=== PATIENT | female | born 1955 | race African-American/Black ===

== ENCOUNTER 2017-03-15 06:16 | Emergency (ER) | payer MEDICAID, OTHER ==
[~2017-03-15] VITALS: Ht 157.5 cm; Wt 105.0 kg
[~2017-03-15 06:16] MED LIST: ALBU0.08 NEB; AMLO10TA2 PO; CYAN100017 PO; HYDR12.56 PO; LORATAB PO; MONT10TA4 PO; SERT-132 PO; TIZA4TAB PO
[2017-03-15 06:18] VITALS: BP 178/77; PULSE 83; RESP 18; TEMP 98.5; O2SAT 96
[2017-03-15] MEDS ORDERED: DICL75TA PO (06:36)
[2017-03-15] MEDS ORDERED: LIDO5DIS35 TOPICAL (06:36)
--- NOTE | 2017-03-15 06:41 | PD ---
HPI Chief Complaint: Pain: Acute or Chronic Time Seen by Provider: 06:30 Travel History International Travel<30 days: No Contact w/Intl Traveler<30days: No Traveled to known affect area: No History of Present Illness HPI This is a 61-year-old female with history of chronic lower back pain with radicular symptoms who presents for evaluation of the same. She reports over the past few days she's had a flareup of her chronic lower back pain. Pain is an aching pain that radiates down the right leg to the right knee. Pain is worse with movement. She has been using her prescribed Lortab and tizanidine but symptoms persist which prompted evaluation. She denies any trauma or strenuous activity. Denies any abdominal pain, bowel or bladder incontinence, saddle anesthesia. She sees pain management doctor Migue and undergoes physical therapy but feels that this is not helping. She also has seen neurosurgeon Dr. Cleaning who recommended physical therapy, operative treatment as a last resort. MRI scan of the lumbar spine from October 2016 reveals postoperative L4 to L5 spondylolisthesis with degenerative disc disease, facet arthropathy, mild this protrusion along with facet hypertrophy at L2 to L3 and L3 to L4. No other complaints. PFSH Past Medical History Anemia: Yes Arthritis: Yes Asthma: Yes Autoimmune Disease: No Anxiety: Yes Heart Rhythm Problems: No Cancer: No Cardiovascular Problems: Yes (HTN) High Cholesterol: Yes Chest Pain: No Congestive Heart Failure: No COPD: No Diabetes: No Diminished Hearing: No Endocrine: No GERD: Yes (pt on Nexium ) Genitourinary: No Hepatitis: No Hiatal Hernia: No Hypertension: Yes Immune Disorder: Yes (RA) Musculoskeletal: Yes Neurologic: No Psychiatric: No Reproductive: No Respiratory: Yes Immunizations Current: No Sickle Cell Disease: No (Sickle cell trait ) Sleep Apnea: No Thyroid Disease: No Ulcer: No Menopausal: Yes : 4 Para: 4 Tubal Ligation: Yes Past Surgical History Abdominal Surgery: No Cardiac Surgery: No Ear Surgery: No Endocrine Surgery: No Eye Surgery: No Genitourinary Surgery: No Gynecologic Surgery: Yes (Hysterectomy ) Hysterectomy: Yes Oral Surgery: No Thoracic Surgery: No Social History Alcohol Use: No Tobacco Use: No Substance Use: No Allergies-Medications (Allergen,Severity, Reaction): Coded Allergies: Ampicillin (Verified Adverse Reaction, Intermediate, HIVES, 03/15/17) Penicillin (Verified Adverse Reaction, Intermediate, HIVES, 03/15/17) Reported Meds & Prescriptions Reported Meds & Active Scripts Active Lidoderm Patch 12 HR (Lidocaine) 5% Patch 1 Patch TOPICAL DAILY PRN Remove patch after [address] (Diclofenac Sodium) 75 Mg Tabdr 75 Mg PO BID 10 Days Amlodipine (Amlodipine Besylate) 10 Mg Tab 10 Mg PO DAILY Albuterol Neb (Albuterol Sulfate) 2.5 Mg/3 Ml Neb 2.5 Mg NEB Q4HR NEB PRN Tizanidine (Tizanidine HCl) 4 Mg Tab 4 Mg PO TID Montelukast (Montelukast Sodium) 10 Mg Tab 10 Mg PO HS Loratadine-Pseudoephedrine 24 HR 10-240 Mg Tab 1 Tab PO DAILY Sertraline (Sertraline HCl) 50 Mg Tab 50 Mg PO DAILY B-12 (Cyanocobalamin) 1,000 Mcg Cap 1,000 Mcg PO DAILY Hydrochlorothiazide 12.5 Mg Tab 12.5 Mg PO DAILY Review of Systems Except as stated in HPI: all other systems reviewed are Neg Physical Exam Narrative GENERAL: Well-developed well-nourished female in no acute distress SKIN: Warm and dry. HEAD: Atraumatic. Normocephalic. EYES: Pupils equal and round. No scleral icterus. No injection or drainage. ENT: No nasal bleeding or discharge. Mucous membranes pink and moist. NECK: Trachea midline. No JVD. CARDIOVASCULAR: Regular rate and rhythm. No murmur appreciated. RESPIRATORY: No accessory muscle use. Clear to auscultation. Breath sounds equal bilaterally. GASTROINTESTINAL: Abdomen soft, non-tender, nondistended. Hepatic and splenic margins not palpable. MUSCULOSKELETAL: No obvious deformities. No lower extremity edema. No CVA tenderness. No reproducible tenderness to palpation along the thoracic or lumbar midline spine. 5 out of 5 muscle strength lower extremities. She has pain with flexion and extension at the torso. NEUROLOGICAL: Awake and alert. No obvious cranial nerve deficits. Motor grossly within normal limits. Normal speech. Data Data Last Documented VS Vital Signs Date Time Temp Pulse Resp B/P Pulse Ox O2 Delivery O2 Flow Rate FiO2 03/15/17 06:18 98.5 83 18 178/77 96 Room Air Orders Ketorolac Inj (Toradol Inj) (03/15/17 06:45) Orphenadrine Inj (Norflex Inj) (03/15/17 06:45) Oxycodone-Acetamin 5-325 Mg (Percocet (03/15/17 06:45) Ondansetron Odt (Zofran Odt) (03/15/17 06:45) [facility] Medical Decision Making Medical Screen Exam Complete: Yes Emergency Medical Condition: Yes Medical Record Reviewed: Yes Differential Diagnosis Herniated nucleus pulposis, piriformis syndrome, degenerative disc disease, compression fracture, malignancy, cauda equina syndrome Narrative Course This is a 61-year-old female with known chronic lower back pain with radicular symptoms or presents with an exacerbation of her chronic back pain. She has no "red flag" symptoms. The plan would be to treat the patient's pain with Toradol , Norflex and Percocet here in the ED. She'll be discharged with Lidoderm patches as well as diclofenac using conjunction with her Lortab and tizanidine. 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 Diagnosis Primary Impression: Lumbosacral radiculopathy Additional Instructions: Medication as needed. Take diclofenac with meals. Continue using your at home pain medication as needed. Follow-up with Dr. Walsh. Return for any emergent medical conditions. Med/Other Pt SpecificInfo: Prescription(s) given Scripts Lidocaine Patch 12 HR (Lidoderm Patch 12 HR)5% Patch1 Patch TOPICAL DAILY PRN ( PAIN) #1 BOX Ref 0 Remove patch after 12 hours Prov:Oscar Rodríguez MD 03/15/[address] 75 Mg Tabdr75 Mg PO BID 10 Days Ref 0 Prov:Oscar Rodríguez MD 03/15/17 Disposition: 01 DISCHARGE HOME Condition: Stable Benjie Us Mar 15, 2017 06:41
[2017-03-15] MEDS ORDERED: ORPHENADRINE INJ 60 MG/2 ML AMP IM ONE (06:45)
[2017-03-15] MEDS ORDERED: oxyCODONE/ACETAMINOPHEN 5 MG/325 MG TAB PO ONE (06:45)
[2017-03-15] MEDS ORDERED: ONDANSETRON ODT 4 MG TAB PO ONE (06:45)
[2017-03-15] MEDS ORDERED: KETOROLAC TROMETHAMINE 60 MG/2 ML (IM) VIAL IM ONE (06:45)
== END 2017-03-15 07:44 | disposition home or self-care (01) ==
LOC: NEPK 06:16
DX: M54.17 Radiculopathy, lumbosacral region (principal); I10 Essential (primary) hypertension; K21.9 Gastro-esophageal reflux disease without esophagitis; E78.00 Pure hypercholesterolemia, unspecified; D64.9 Anemia, unspecified; M19.90 Unspecified osteoarthritis, unspecified site; F41.9 Anxiety disorder, unspecified
CPT/HCPCS: 96372; 99283; J1885; J2360